=== PATIENT | male | born 1970 | race Caucasian/White ===

== ENCOUNTER 2020-04-26 15:07 | Observation (INO) | payer BC ==
[2020-04-26] MEDS ORDERED: DILTIAZEM HCL INJ 25 MG/5 ML VIAL IV ONE (16:03)
[2020-04-26] MEDS ORDERED: DILTIAZEM HCL/D5W 125 MG/125 ML RTUINJ IV PRN (16:04)
--- NOTE | 2020-04-26 16:12 | ER Document Report ---
ED Cardiac - General Chief Complaint: Palpitations Stated Complaint: FAST HEART RATE Time Seen by Provider: 04/26/20 15:42 - HPI Notes: Patient is a 49-year-old male with no significant past medical history who presents with palpitations. Patient states he woke up today around 4:30 AM to get ready for work. He felt his heart beating fast. He states he has felt this before about 1 year ago but it went away when he coughed. Patient went to work and told his boss that he was still having palpitations who referred him to the doctor. Patient saw [facility] today and had an EKG which showed atrial fibrillation and was sent to the ED. He denies any chest pain or shortness of breath. No fevers or recent illnesses. Patient has not been to the doctor in many years. He is a smoker. He does not take any medications. Patient states that he drinks Coke in the morning but otherwise denies any increase in caffeine use. No drug use. - Related Data Allergies/Adverse Reactions: No Known Allergies Allergy (Unverified 04/26/20 15:54) Past Medical History - General Information source: Patient - Social History Smoking Status: Current Every Day Smoker Family History: Reviewed & Not Pertinent Review of Systems - Review of Systems Notes: CONSTITUTIONAL: No fever, fatigue or weight loss. SKIN: No rash. HENT: No congestion, ear pain, or sore throat. EYES: No recent vision problems or eye pain. CARDIOVASCULAR: No chest pain or edema. Positive for palpitations. RESPIRATORY: No cough, shortness of breath, congestion, or wheezing. GASTROINTESTINAL: No abdominal pain, nausea, vomiting, bloody stools or diarrhea. GENITOURINARY: No dysuria. MUSCULOSKELETAL: No joint pain or swelling. LYMPHATIC: No swollen glands. NEUROLOGIC: No seizures. No headache, focal weakness or sensory changes. HEMATOLOGIC: No unusual bruising or bleeding. PSYCHIATRIC: No depression or anxiety. Physical Exam - Vital signs Vitals: Pulse Ox 98 04/26/20 15:35 - General General appearance: Appears well In distress: None Notes: VITAL SIGNS: Tachycardic. GENERAL: No acute distress, non-toxic appearance. HEAD: Normal with no signs of head trauma. EYES: Conjunctiva normal, no discharge. EARS: Hearing grossly intact. NOSE: Normal. NECK: Normal range of motion, no tenderness, supple, no lymphadenopathy, No adenopathy, no JVD. CHEST: Scant wheezing. CARDIAC: Irregularly irregular. VASCULAR: No Edema. Radial pulses equal. ABDOMEN: Normal and soft with no tenderness, no masses or pulsatile masses. MUSCULOSKELETAL: Good range of motion of all major joints. Extremities without clubbing, cyanosis or edema. NEUROLOGICAL: Alert and oriented x 3. No focal sensory or strength deficits. Speech normal. Follows commands appropriately. PSYCHIATRIC: Normal Affect, judgement and mood. SKIN: Normal appearance with no rashes or lesions. Course - Re-evaluation Re-evalutation: 04/26/20 16:11 Patient has A. fib with RVR. This is a new diagnosis. I will start him on a Cardizem bolus and drip. Patient's Chads Vasc score is 0, however, he has not seen a doctor in many years. I will discuss with hospitalist after lab work is resolved and patient has had Cardizem. Patient's heart rate has improved to the high 90s and low 100s on Cardizem. I discussed with the hospitalist for admission. Patient is agreeable to this. He continues to deny any complaints. 04/26/20 16:17 04/26/20 17:38 04/26/20 20:50 - Vital Signs Vital signs: Temp Pulse Resp BP Pulse Ox 106 H 11 L 142/102 H 98 04/26/20 19:27 04/26/20 18:30 04/26/20 18:30 04/26/20 18:30 - Laboratory Results Result Diagrams: 04/26/20 15:48 04/26/20 15:48 Laboratory Results Interpreted: 04/26/20 15:48 RBC 5.56 H Hgb 17.2 H Critical Laboratory Results Reviewed: No Critical Results - Radiology Results Critical Radiology Results Reviewed: No Critical Results - EKG Interpretation by Me Rate: Tachycardia Rhythm: A.Fib When compared to previous EKG there are: Previous EKG unavailable Additional EKG results interpreted by me: 04/26/20 16:12 Atrial fibrillation at a rate of 154. No acute ST changes. QTc 468. No previous EKG immediately available for comparison. 04/26/20 17:45 Repeat EKG shows atrial fibrillation at a rate of 101. QTc 415. No acute ST changes. Discharge - Discharge Clinical Impression: Atrial fibrillation with RVR Condition: Stable Disposition: ADMITTED INPATIENT Admitting Provider: Sroush (Hospitalist) Unit Admitted: Telemetry
[2020-04-26 16:29] LABS: ABSOLUTE BASOPHILS # (AUTO) 0.1 10^3/uL (0.0-0.2); ABSOLUTE EOSINOPHILS # (AUTO) 0.1 10^3/uL (0.0-0.6); ABSOLUTE LYMPHOCYTES (AUTO) 2.2 10^3/uL (0.5-4.7); ABSOLUTE MONOCYTES (AUTO) 0.7 10^3/uL (0.1-1.4); ABSOLUTE NEUT (AUTO) 5.2 10^3/uL (1.7-8.2); BASOPHILS % (AUTO) 1.2 % (0-2); EOSINOPHILS % (AUTO) 0.9 % (0-6); HEMOGLOBIN 17.2 g/dL (13.5-17.0); LYMPHOCYTES % (AUTO) 26.8 % (13-45); MEAN CORPUSCULAR HEMOGLOBIN 30.9 pg (27.0-33.4); MEAN CORPUSCULAR HGB CONC 35.8 g/dL (32.0-36.0); MEAN CORPUSCULAR VOLUME 86 fl (80-97); MONOCYTES % (AUTO) 8.7 % (3-13); PLATELET COUNT 362 10^3/uL (150-450); RED BLOOD COUNT 5.56 10^6/uL (4.35-5.55); RED CELL DISTRIBUTION WIDTH 13.2 % (11.5-14.0); SEGMENTED NEUTROPHILS % (AUTO) 62.4 % (42-78); TOTAL CELLS COUNTED % (AUTO) 100 %; WHITE BLOOD COUNT 8.3 10^3/uL (4.0-10.5)
--- NOTE | 2020-04-26 16:31 | RADIOLOGY REPORT (SQ) ---
EXAM DESCRIPTION: CHEST SINGLE VIEW IMAGES COMPLETED DATE/TIME: 04/26/2020 4:16 pm REASON FOR STUDY: rapid heart rate COMPARISON: None. EXAM PARAMETERS: NUMBER OF VIEWS: One view. TECHNIQUE: Single frontal radiographic view of the chest acquired. RADIATION DOSE: NA LIMITATIONS: None. FINDINGS: LUNGS AND PLEURA: The lung tate are hyperexpanded but clear. No effusion. No pneumotho rax. MEDIASTINUM AND HILAR STRUCTURES: No masses. Contour normal. HEART AND VASCULAR STRUCTURES: Heart normal in size. Normal vasculature. BONES: No acute findings. HARDWARE: None in the chest. OTHER: No other significant finding. IMPRESSION: Hyperexpansion otherwise negative chest. TECHNICAL DOCUMENTATION: JOB ID: [id number] 2010 [employer]- All Rights Reserved Reading location - IP/workstation name: [email or web address]
[2020-04-26 16:47] LABS: ALBUMIN 4.7 g/dL (3.5-5.0); ALKALINE PHOSPHATASE 69 U/L (38-126); ANION GAP 8 (5-19); ASPARTATE AMINO TRANSFERASE 36 U/L (17-59); BILIRUBIN,DIRECT 0.2 mg/dL (0.0-0.4); BILIRUBIN,TOTAL 0.8 mg/dL (0.2-1.3); BLOOD UREA NITROGEN 15 mg/dL (7-20); CALCIUM 9.8 mg/dL (8.4-10.2); CARBON DIOXIDE 27 mmol/L (22-30); CHLORIDE 105 mmol/L (98-107); CREATINE KINASE 85 U/L (55-170); GLUCOSE 89 mg/dL (75-110); TOTAL PROTEIN 8.2 g/dL (6.3-8.2)
[2020-04-26 17:04] LABS: FREE T4 (FREE THYROXINE) 1.15 ng/dL (0.78-2.19)
[2020-04-26 17:18] LABS: THYROID STIMULATING HORMONE 2.57 uIU/mL (0.47-4.68)
[2020-04-26] MEDS ORDERED: ASPIRIN 325 MG TABLET PO ONE (17:40)
--- NOTE | 2020-04-26 17:57 | EKG REPORT ---
SEVERITY:- ABNORMAL ECG - ATRIAL FIBRILLATION, V-RATE 68-132 NONSPECIFIC T ABNORMALITIES, DIFFUSE LEADS : Confirmed by: Ash Rodríguez MD 26-Apr-2020 17:56:28
--- NOTE | 2020-04-26 17:58 | EKG REPORT ---
SEVERITY:- ABNORMAL ECG - ATRIAL FIBRILLATION, WITH RAPID V-RATE 108-[address]-T CHANGES DIFFUSE : Confirmed by: Ash Rodríguez MD 26-Apr-2020 17:58:03
[2020-04-26] MEDS ORDERED: NORMAL SALINE 1000 ML 1,000 ML IV PRN (18:35)
[2020-04-26] MEDS ORDERED: PROMETHAZINE HCL INJ 25 MG/1 ML VIAL IV PRN (18:35)
[2020-04-26] MEDS ORDERED: ONDANSETRON 4 MG TAB.RAPDIS PO PRN (18:35)
[2020-04-26] MEDS ORDERED: ONDANSETRON HCL INJ/PF 4 MG/2 ML SDV IV PRN (18:35)
[2020-04-26] MEDS ORDERED: IPRATROPIUM/ALBUTEROL 0.5-2.5 MG/3 ML AMPUL NEB PRN (18:35)
[2020-04-26] MEDS ORDERED: TEMAZEPAM 7.5 MG CAPSULE PO PRN (18:35)
[2020-04-26] MEDS ORDERED: ACETAMINOPHEN 325 MG TABLET PO PRN (18:35)
[2020-04-26] MEDS ORDERED: OXYCODONE-ACETAMINOPHEN 5-325 MG TABLET PO PRN (18:35)
[2020-04-26] MEDS ORDERED: METOPROLOL TARTRATE PF/INJ 5 MG/5 ML SDV IV PRN (18:38)
[2020-04-26] MEDS ORDERED: NICOTINE 14 MG/24 HR PATCH.TD24 TD PRN (18:41)
[2020-04-26] MEDS ORDERED: METOPROLOL TARTRATE 25 MG TABLET PO SCH ×2 (18:45→20:30)
--- NOTE | 2020-04-26 18:45 | PDOC H&P ---
History of Present Illness Admission Date/PCP: 04/26/20 18:04 JUAN TIM MD History of Present Illness: SCOOTER CASAS is a 49 year old male with no significant past medical history except tobacco abuse presenting to ED complaining of palpitations. Patient is stating that he has felt palpitations before about 2 times but did not last as much, this morning when he woke up got his newspaper and coffee he suddenly felt heart beating fast and he told his coworker who urged him to come to ED. Patient is stating that when his heart was beating fast he did not have any chest pain or any lightheadedness. Patient denies any personal or family history of CAD, denies any weight changes, any orthopnea, paroxysmal nocturnal dyspnea, chest pain, nausea, vomiting, diarrhea, constipation or any urinary symptoms. In ED he was noted to be in A. fib RVR with normal troponins and TSH, patient was started on Cardizem drip and hospitalist was consulted for admission. Social History Smoking Status: Current Every Day Smoker Family History Family History: None, Reviewed & Not Pertinent Parental Family History Reviewed: Yes Children Family History Reviewed: Yes Sibling(s) Family History Reviewed.: Yes Medication/Allergy Home Medications: No Home Medications 04/26/20 Allergies/Adverse Reactions: No Known Allergies Allergy (Unverified 04/26/20 15:54) Review of Systems Review of Systems: as per hpi Physical Exam General appearance: PRESENT: no acute distress, well-developed, well-nourished Head exam: PRESENT: atraumatic, normocephalic Respiratory exam: PRESENT: clear to auscultation sarika. ABSENT: rales, rhonchi, wheezes Cardiovascular exam: PRESENT: irregular rhythm, RRR. ABSENT: diastolic murmur, rubs, systolic murmur GI/Abdominal exam: PRESENT: normal bowel sounds, soft. ABSENT: distended, guarding, mass, organolmegaly, rebound, tenderness Neurological exam: PRESENT: alert, awake, oriented to person, oriented to place, oriented to time, oriented to situation, CN II-XII grossly intact. ABSENT: motor sensory deficit Results Laboratory Results: 04/26/20 15:48 04/26/20 15:48 04/26/20 04/26/20 04/26/20 15:48 15:48 15:48 WBC 8.3 RBC 5.56 H Hgb 17.2 H Hct 48.0 MCV 86 MCH 30.9 MCHC 35.8 RDW 13.2 Plt Count 362 Seg Neutrophils % 62.4 Sodium 140.3 Potassium 4.0 Chloride 105 Carbon Dioxide 27 Anion Gap 8 BUN 15 Creatinine 0.91 Est GFR ( Amer) > 60 Glucose 89 Calcium 9.8 Total Bilirubin 0.8 AST 36 Alkaline Phosphatase 69 Total Protein 8.2 Albumin 4.7 TSH 2.57 Free T4 1.15 04/26/20 04/26/20 15:48 15:48 Creatine Kinase 85 Troponin I < 0.012 Impressions: Chest X-Ray 04/26/20 16:03 IMPRESSION: Hyperexpansion otherwise negative chest. Assessment and Plan - Diagnosis (1) Atrial fibrillation with RVR Is this a current diagnosis for this admission?: Yes Plan: New onset atrial fibrillation, chadsvasc score of 0. No anticoagulation indicated. Admit to ICU, transition Cardizem drip to p.o. beta-blockers. Cardiology consulted. We will also obtain lipid panel and check hemoglobin A1c. (2) Tobacco abuse Is this a current diagnosis for this admission?: Yes Plan: Counseled on quitting. NicoDerm patch as needed. - Time Time Spent with patient: 35 or more minutes Anticipated Discharge Disposition: Home, Self Care Anticipated Discharge Timeframe: within 24 hours
[2020-04-26] MEDS: HEPARIN SOD (PORCINE) 5,000 UNIT/ML 1 ML VIAL SUBCUT SCH (21:08)
[2020-04-26] MEDS: FAMOTIDINE 20 MG TABLET PO SCH (21:09)
[2020-04-27] MEDS: HEPARIN SOD (PORCINE) 5,000 UNIT/ML 1 ML VIAL SUBCUT SCH (05:08)
[2020-04-27 06:31] LABS: HEMATOCRIT 48.6 % (37.9-51.0); HEMOGLOBIN 16.7 g/dL (13.5-17.0); MEAN CORPUSCULAR HEMOGLOBIN 29.9 pg (27.0-33.4); MEAN CORPUSCULAR HGB CONC 34.4 g/dL (32.0-36.0); MEAN CORPUSCULAR VOLUME 87 fl (80-97); RED CELL DISTRIBUTION WIDTH 13.3 % (11.5-14.0)
[2020-04-27 06:55] LABS: CHOLESTEROL 176.56 mg/dL (0-200); TRIGLYCERIDES 109 mg/dL (<150)
[2020-04-27 07:05] LABS: DIRECT LDL 87 mg/dL (<100)
[2020-04-27 07:18] LABS: PLATELET COUNT 319 10^3/uL (150-450)
[2020-04-27] MEDS ORDERED: METOPROLOL TARTRATE 50 MG TABLET PO SCH ×2 (08:30→14:00)
[2020-04-27] MEDS: FAMOTIDINE 20 MG TABLET PO SCH ×2 (09:01→21:11)
[2020-04-27] MEDS: ASPIRIN 81 MG TABLET, CHEWABLE PO SCH (09:01)
--- NOTE | 2020-04-27 09:43 | PDOC CONSULTATION ---
Consultation Consult Date: 04/27/20 Attending physician:: SELENA NUÑEZ Provider Consulted: BALTAZAR BUTTERFIELD Consult reason:: New onset A-fib History of Present Illness Admission Date/PCP: 04/26/20 18:04 JUAN TIM MD History of Present Illness: SCOOTER CASAS is a 49 year old male with no known history of medical issues, tobacco smoker of 1 pack/day since age 25 years who is consulted to our service for new onset atrial fibrillation. The patient has had very brief episodes of palpitations in the past with spontaneous resolution and not associated with any cardiovascular symptoms however yesterday he felt palpitations again that did not resolve as usual. He was instructed by his employer to be evaluated by his PCM who directed the patient to the emergency room where he was found to be in rapid atrial fibrillation. He was initially started on a diltiazem drip which was eventually discontinued and was started on Lopressor 25 mg twice daily. This morning he feels at his baseline and his main issue is that he is very anxious about staying in the hospital because of Covid concerns and also he wants to smoke. He specifically denies chest pain, shortness of breath, CHATMAN, PND, lower extremity edema, palpitations, syncope and presyncope. His telemetry shows rapid atrial fibrillation with heart rates as high as 140 bpm. Physical exam on 04/27/2020: GENERAL: Looks older than stated age. Pleasant and conversational. Oriented x3 with normal mood. Not in acute distress. Disheveled. HEENT: Normocephalic, atraumatic. Pupils equal. Sclerae anicteric. Oropharynx moist. NECK: No JVD. No carotid bruits. LUNGS: Deep inspiratory mild wheezing and rhonchi at the bases. Normal respiratory effort without the use of accessory muscles or intercostal retractions. CARDIOVASCULAR: Tachycardic, irregularly irregular rhythm without murmurs, rubs, or gallops. PMI not displaced. ABDOMEN: No masses or tenderness to palpation. No bruit. No splenomegaly or hepatomegaly. No abdominal aorta bruit noted. EXTREMITIES: No edema, no cyanosis, no clubbing. +2 pulses femoral and pedal pulses bilaterally. SKIN: No lesions or rashes. MUSCULOSKELETAL: No chest tenderness to palpation. NEUROLOGIC: Nonfocal. No gross sensory or motor deficits bilateral upper or lower extremities. Past Medical History Psychiatric Medical History: Denies: Depression Social History Smoking Status: Current Every Day Smoker Cigarettes Packs Per Day: 30 Electronic Cigarette use?: No Frequency of Alcohol Use: Heavy Hx Recreational Drug Use: No Drugs: None Hx Prescription Drug Abuse: No Family History Family History: Reviewed & Not Pertinent Parental Family History Reviewed: Yes Children Family History Reviewed: Yes Sibling(s) Family History Reviewed.: Yes Medication/Allergy Home Medications: No Home Medications 04/26/20 Allergies/Adverse Reactions: No Known Allergies Allergy (Unverified 04/26/20 15:54) Physical Exam Vital Signs: Temp Pulse Resp BP Pulse Ox 98.4 F 69 18 129/71 H 99 04/27/20 03:38 04/27/20 03:38 04/27/20 03:38 04/27/20 03:38 04/27/20 03:38 Intake & Output 04/26/20 04/27/20 04/28/20 06:59 06:59 06:59 Intake Total 407 Balance 407 Weight 80.2 kg Results Laboratory Results: 04/26/20 15:48 04/26/20 04/26/20 04/26/20 15:48 15:48 15:48 WBC 8.3 RBC 5.56 H Hgb 17.2 H Hct 48.0 MCV 86 MCH 30.9 MCHC 35.8 RDW 13.2 Plt Count 362 Seg Neutrophils % 62.4 Sodium 140.3 Potassium 4.0 Chloride 105 Carbon Dioxide 27 Anion Gap 8 BUN 15 Creatinine 0.91 Est GFR ( Amer) > 60 Glucose 89 Calcium 9.8 Total Bilirubin 0.8 AST 36 Alkaline Phosphatase 69 Total Protein 8.2 Albumin 4.7 Triglycerides Cholesterol LDL Cholesterol Direct VLDL Cholesterol HDL Cholesterol TSH 2.57 Free T4 1.15 04/27/20 05:59 WBC RBC Hgb Hct MCV MCH MCHC RDW Plt Count Seg Neutrophils % Sodium Potassium Chloride Carbon Dioxide Anion Gap BUN Creatinine Est GFR ( Amer) Glucose Calcium Total Bilirubin AST Alkaline Phosphatase Total Protein Albumin Triglycerides 109 Cholesterol 176.56 LDL Cholesterol Direct 87 VLDL Cholesterol 22.0 HDL Cholesterol 68 TSH Free T4 04/26/20 04/26/20 15:48 15:48 Creatine Kinase 85 Troponin I < 0.012 Impressions: Chest X-Ray 04/26/20 16:03 IMPRESSION: Hyperexpansion otherwise negative chest. Assessment & Plan - Diagnosis (1) Atrial fibrillation with RVR Plan: This is the patient's first documented episode of atrial fibrillation although he has had palpitations in the past which were brief and which resolved spontaneously. Whether or not this is his true first episode atrial fibrillation or not is unknown. I had a long discussion with him and his regarding rhythm control versus rate control strategy and the patient is leaning towards rate control for now with a switch to rhythm control as an outpatient as, again, he is very anxious to leave the hospital. At this point he is not ready to go home from the cardiovascular standpoint as he continues to be tachycardic. We will increase his beta-jeffry to 50 mg p.o. every 6 hours to achieve better heart rate control and we will obtain an echocardiogram to assess for structural heart disease. We will also start him on Eliquis 5 mg p.o. twice daily in preparation for cardioversion in the near future. His [id number] score is 0 therefore he does not require long-term anticoagulation. The plan was discussed with the hospitalist, Dr. Park. Recommendations: -Increase Lopressor to 50 mg p.o. every 6 hours. -Start Eliquis 5 mg p.o. twice daily. -Continue with telemetry. -Echocardiogram today. -We will continue to follow the patient with you. (2) Tobacco abuse Plan: The patient was counseled about the importance of quitting tobacco, he verbalized understanding. Further management per hospitalist team.
--- NOTE | 2020-04-27 10:49 | PDOC PROGRESS REPORT ---
Subjective Date:: 04/27/20 Subjective:: SCOOTER CASAS is a 49 year old male with no significant past medical history except tobacco abuse presenting to ED complaining of palpitations. Patient is stating that he has felt palpitations before about 2 times but did not last as much, this morning when he woke up got his newspaper and coffee he suddenly felt heart beating fast and he told his coworker who urged him to come to ED. Patient is stating that when his heart was beating fast he did not have any chest pain or any lightheadedness. Patient denies any personal or family history of CAD, denies any weight changes, any orthopnea, paroxysmal nocturnal dyspnea, chest pain, nausea, vomiting, diarrhea, constipation or any urinary symptoms. In ED he was noted to be in A. fib RVR with normal troponins and TSH, patient was started on Cardizem drip and hospitalist was consulted for admission. 04/27/2020. No acute events overnight, unfortunately patient is still not rate controlled, anxious to leave the hospital however has agreed to stay until his heart rate is controlled, denies any lightheadedness, chest pain, nausea, vomiting, diarrhea, constipation or any urinary symptoms. , Reason For Visit: NEW ONSET AFIB Physical Exam Vital Signs: Temp Pulse Resp BP Pulse Ox 98.4 F 148 H 18 132/76 H 99 04/27/20 08:12 04/27/20 08:00 04/27/20 08:00 04/27/20 08:00 04/27/20 08:00 Intake & Output 04/26/20 04/27/20 04/28/20 06:59 06:59 06:59 Intake Total 407 Balance 407 Weight 80.2 kg General appearance: PRESENT: no acute distress, well-developed, well-nourished Head exam: PRESENT: atraumatic, normocephalic Respiratory exam: PRESENT: clear to auscultation sarika. ABSENT: rales, rhonchi, wheezes Cardiovascular exam: PRESENT: RRR, tachycardia. ABSENT: diastolic murmur, rubs, systolic murmur GI/Abdominal exam: PRESENT: normal bowel sounds, soft. ABSENT: distended, guarding, mass, organolmegaly, rebound, tenderness Extremities exam: PRESENT: full ROM. ABSENT: calf tenderness, clubbing, pedal edema Neurological exam: PRESENT: alert, awake, oriented to person, oriented to place, oriented to time, oriented to situation, CN II-XII grossly intact. ABSENT: motor sensory deficit Results Laboratory Results: 04/27/20 05:59 04/26/20 15:48 04/26/20 04/26/20 04/26/20 15:48 15:48 15:48 WBC 8.3 RBC 5.56 H Hgb 17.2 H Hct 48.0 MCV 86 MCH 30.9 MCHC 35.8 RDW 13.2 Plt Count 362 Seg Neutrophils % 62.4 Sodium 140.3 Potassium 4.0 Chloride 105 Carbon Dioxide 27 Anion Gap 8 BUN 15 Creatinine 0.91 Est GFR ( Amer) > 60 Glucose 89 Calcium 9.8 Total Bilirubin 0.8 AST 36 Alkaline Phosphatase 69 Total Protein 8.2 Albumin 4.7 Triglycerides Cholesterol LDL Cholesterol Direct VLDL Cholesterol HDL Cholesterol TSH 2.57 Free T4 1.15 04/27/20 04/27/20 05:59 05:59 WBC 8.0 RBC 5.60 H Hgb 16.7 Hct 48.6 MCV 87 MCH 29.9 MCHC 34.4 RDW 13.3 Plt Count 319 Seg Neutrophils % Sodium Potassium Chloride Carbon Dioxide Anion Gap BUN Creatinine Est GFR ( Amer) Glucose Calcium Total Bilirubin AST Alkaline Phosphatase Total Protein Albumin Triglycerides 109 Cholesterol 176.56 LDL Cholesterol Direct 87 VLDL Cholesterol 22.0 HDL Cholesterol 68 TSH Free T4 04/26/20 04/26/20 15:48 15:48 Creatine Kinase 85 Troponin I < 0.012 Impressions: Chest X-Ray 04/26/20 16:03 IMPRESSION: Hyperexpansion otherwise negative chest. Assessment and Plan - Diagnosis (1) Atrial fibrillation with RVR Is this a current diagnosis for this admission?: Yes Plan: Not rate control. Currently off of Cardizem drip. New onset atrial fibrillation, chadsvasc score of 0. No anticoagulation indicated. Hemoglobin A1c 5.0%. Lipid panel within acceptable range. Continue p.o. beta-blockers, uptitrate to achieve a heart rate of less than 100. We will start on Eliquis 5 mg p.o. twice daily in preparation for outpatient cardioversion. Cardiology on board. Recommendations noted. (2) Tobacco abuse Is this a current diagnosis for this admission?: Yes Plan: Counseled on quitting. NicoDerm patch as needed. - Time Time Spent with patient: 35 or more minutes Anticipated Discharge Disposition: Home, Self Care Anticipated Discharge Timeframe: within 48 hours
[2020-04-27] MEDS: VARENICLINE TARTRATE 0.5 MG TABLET PO SCH (12:28)
--- NOTE | 2020-04-27 16:19 | XCELERA REPORT ---
[address] [address] Transthoracic Echocardiogram Report Name: SCOOTER CASAS Age: 49 yrs Gender: Male : 1970 Patient Status: Inpatient Patient Location: [address] [place] [address] Study Date: 04/27/2020 08:35 AM Height: 74 in Weight: 173 lb BSA: 2.0 m2 Procedure: A complete two-dimensional transthoracic echocardiogram was performed (2D, M-mode, spectral and color flow Doppler). Study Quality: Fair. Reason For Study: Atrial fibrillation Ordering Physician: BALTAZAR BUTTERFIELD Performed By: Maite Woody Interpretation Summary Technically difficult study. The patient was in rapid atrial fibrillation during the study. There is mild concentric left ventricular hypertrophy. LV systolic function is difficult to assess as the patient is in rapid atrial fibrillation however it appears to be preserved. LV diastolic function could not be adequately assessed due to atrial fibrilation. Regional wall motion abnormalities cannot be excluded due to limited visualization. LV diastolic function could not be adequately assessed due to atrial fibrilation. Mild MR, mild TR. No prior studies for comparison. MMode/2D Measurements & Calculations RVDd: 3.0 cm LVIDd: 4.1 cm FS: 29.1 % Ao root diam: 2.9 cm IVSd: 1.3 cm LVIDs: 2.9 cm EDV(Teich): Ao root area: 73.2 ml LVPWd: 1.0 cm 6.5 cm2 ESV(Teich): 31.9 ml EF(Teich): 56.4 % EDV(MOD-sp4): SV(MOD-sp4): 67.7 ml 35.5 ml ESV(MOD-sp4): 32.2 ml EF(MOD-sp4): 52.4 % Doppler Measurements & Calculations MV E max niko: MV dec slope: Ao V2 max: LV V1 max P.4 cm/sec 78.2 cm/sec 3.2 mmHg MV A max niko: 714.3 cm/sec2 Ao max PG: LV V1 max: 45.9 cm/sec MV dec time: 0.10 sec 2.4 mmHg 89.0 cm/sec MV E/A: 1.6 PA V2 max: TR max niko: 68.0 cm/sec 206.1 cm/sec PA max P.9 mmHg TR max P.0 mmHg Left Ventricle There is mild concentric left ventricular hypertrophy. LV systolic function is difficult to assess as the patient is in rapid atrial fibrillation however it appears to be preserved. LV diastolic function could not be adequately assessed due to atrial fibrilation. Regional wall motion abnormalities cannot be excluded due to limited visualization. Right Ventricle The right ventricle is normal in size, thickness and function. The right ventricular systolic function is normal. Atria The right atrium is normal. The left atrial size is normal. Interarterial septum not well visualized and not well dopplered. Cannot comment on ASD/PFO presence. Mitral Valve The mitral valve is normal in structure and function. There is no evidence of mitral valve prolapse. There is no mitral valve stenosis. There is a mild amount of mitral regurgitation. Aortic Valve The aortic valve is normal in structure and functions normally. There is no aortic valvular vegetation. There is no aortic valve stenosis. No aortic regurgitation is present. Tricuspid Valve The tricuspid is normal in structure and function. There is no tricuspid valve prolapse. There is no tricuspid stenosis. There is a mild amount of tricuspid regurgitation. Pulmonic Valve The pulmonic valve is normal in structure and function. There is no vegetation on the pulmonic valve. There is no pulmonic valvular stenosis. There is no pulmonic valvular regurgitation. Great Vessels The aortic root is normal size. Effusions There is no pericardial effusion. There is no pleural effusion. : BALTAZAR BUTTERFIELD, Baltazar
[2020-04-27] MEDS: APIXABAN 5 MG TABLET PO SCH (17:07)
--- NOTE | 2020-04-27 17:44 | EKG REPORT ---
SEVERITY:- NORMAL ECG - SINUS RHYTHM : Confirmed by: Ash Rodríguez MD 27-Apr-2020 17:43:55
[2020-04-27] MEDS ORDERED: METOPROLOL TARTRATE 25 MG TABLET PO SCH (22:00)
--- NOTE | 2020-04-28 09:08 | PDOC PROGRESS REPORT ---
Subjective Date:: 04/28/20 Subjective:: SCOOTER CASAS is a 49 year old male with no known history of medical issues, to bacco smoker of 1 pack/day since age 25 years who is consulted to our service for new onset atrial fibrillation. The patient has had very brief episodes of palpitations in the past with spontaneous resolution and not associated with any cardiovascular symptoms however yesterday he felt palpitations again that did not resolve as usual. He was instructed by his employer to be evaluated by his PCM who directed the patient to the emergency room where he was found to be in rapid atrial fibrillation. He was initially started on a diltiazem drip which was eventually discontinued and was started on Lopressor 25 mg twice daily. This morning he feels at his baseline and his main issue is that he is very anxious about staying in the hospital because of Covid concerns and also he wants to smoke. He specifically denies chest pain, shortness of breath, CHATMAN, PND, lower extremity edema, palpitations, syncope and presyncope. His telemetry shows rapid atrial fibrillation with heart rates as high as 140 bpm. 04/28/2020: The patient had uneventful night and feels 100% better. He did convert spon taneously to normal sinus rhythm at around 0940 yesterday morning. He denies recurrence of index symptoms. Physical exam on 04/28/2020: GENERAL: Looks older than stated age. Pleasant and conversational. Oriented x3 with normal mood. Not in acute distress. Disheveled. HEENT: Normocephalic, atraumatic. Pupils equal. Sclerae anicteric. Oropharynx moist. NECK: No JVD. No carotid bruits. LUNGS: Deep inspiratory mild wheezing and rhonchi at the bases. Normal respiratory effort without the use of accessory muscles or intercostal retractions. CARDIOVASCULAR: Regularly regular rate and rhythm without murmurs, rubs, or gallops. PMI not displaced. ABDOMEN: No masses or tenderness to palpation. No bruit. No splenomegaly or hepatomegaly. No abdominal aorta bruit noted. EXTREMITIES: No edema, no cyanosis, no clubbing. +2 pulses femoral and pedal pulses bilaterally. SKIN: No lesions or rashes. MUSCULOSKELETAL: No chest tenderness to palpation. NEUROLOGIC: Nonfocal. No gross sensory or motor deficits bilateral upper or lower extremities. Reason For Visit: NEW ONSET AFIB Physical Exam Vital Signs: Temp Pulse Resp BP Pulse Ox 97.8 F 70 20 134/77 H 100 04/28/20 08:28 04/28/20 07:00 04/28/20 03:38 04/28/20 03:38 04/28/20 03:38 Intake & Output 04/27/20 04/28/20 04/29/20 06:59 06:59 06:59 Intake Total 407 1999 Balance 407 1999 Weight 80.2 kg 79.5 kg Results Laboratory Results: 04/27/20 05:59 04/26/20 15:48 04/26/20 04/26/20 15:48 15:48 Creatine Kinase 85 Troponin I < 0.012 Impressions: Chest X-Ray 04/26/20 16:03 IMPRESSION: Hyperexpansion otherwise negative chest. 04/27/20 05:59 04/26/20 15:48 MCV 87 fl (80-97) 04/27/20 05:59 MCH 29.9 pg (27.0-33.4) 04/27/20 05:59 MCHC 34.4 g/dL (32.0-36.0) 04/27/20 05:59 RDW 13.3 % (11.5-14.0) 04/27/20 05:59 Seg Neutrophils % 62.4 % (42-78) 04/26/20 15:48 Chloride 105 mmol/L (98-107) 04/26/20 15:48 Carbon Dioxide 27 mmol/L (22-30) 04/26/20 15:48 Anion Gap 8 (5-19) 04/26/20 15:48 Est GFR ( Amer) > 60 (>60) 04/26/20 15:48 Glucose 89 mg/dL (75-110) 04/26/20 15:48 Calcium 9.8 mg/dL (8.4-10.2) 04/26/20 15:48 Total Bilirubin 0.8 mg/dL (0.2-1.3) 04/26/20 15:48 AST 36 U/L (17-59) 04/26/20 15:48 Alkaline Phosphatase 69 U/L (38-126) 04/26/20 15:48 Total Protein 8.2 g/dL (6.3-8.2) 04/26/20 15:48 Albumin 4.7 g/dL (3.5-5.0) 04/26/20 15:48 Triglycerides 109 mg/dL (<150) 04/27/20 05:59 Cholesterol 176.56 mg/dL (0-200) 04/27/20 05:59 LDL Cholesterol Direct 87 mg/dL (<100) 04/27/20 05:59 VLDL Cholesterol 22.0 mg/dL (10-31) 04/27/20 05:59 HDL Cholesterol 68 mg/dL (>40) 04/27/20 05:59 TSH 2.57 uIU/mL (0.47-4.68) 04/26/20 15:48 Free T4 1.15 ng/dL (0.78-2.19) 04/26/20 15:48 04/26/20 04/26/20 15:48 15:48 Creatine Kinase 85 Troponin I < 0.012 Current Medication List Generic Name Dose Route Start Last Admin Trade Name Freq PRN Reason Stop Dose Admin Acetaminophen 325 mg 04/26/20 18:35 Acetaminophen 325 Mg Tablet PO 05/26/20 18:34 Q4HP PRN FEVER >101 Albuterol/Ipratropium 3 ml 04/26/20 18:35 Ipratropium/Albuterol 0.5-2.5 Mg/3 Ml Ampul NEB 05/26/20 18:34 RTQ6HP PRN SHORTNESS OF BREATH Apixaban 5 mg 04/27/20 18:00 04/27/20 17:07 Apixaban 5 Mg Tablet PO 05/27/20 17:59 5 mg BID ERUM Administration Aspirin 81 mg 04/27/20 10:00 04/27/20 09:01 Aspirin 81 Mg Tablet, Chewable PO 05/27/20 09:59 81 mg DAILY ERUM Administration Famotidine 20 mg 04/26/20 22:00 04/27/20 21:11 Famotidine 20 Mg Tablet PO 05/26/20 21:59 Not Given Q12 ERUM Metoprolol Tartrate 2.5 mg 04/26/20 18:38 04/27/20 04:32 Metoprolol Tartrate Pf/Inj 5 Mg/5 Ml Sdv IV 05/26/20 18:37 2.5 mg Q6HP PRN Administration Give For Hr > [130] Metoprolol Tartrate 25 mg 04/28/20 10:00 Metoprolol Tartrate 25 Mg Tablet PO 05/28/20 09:59 Q12 ERUM Nicotine 1 each 04/26/20 18:41 04/27/20 09:01 Nicotine 14 Mg/24 Hr Patch.Td24 TD 05/26/20 18:40 1 each DAILYP PRN Administration WITHDRAWAL SYMPTOMS Ondansetron HCl 4 mg 04/26/20 18:35 Ondansetron 4 Mg Tab.Rapdis PO 05/26/20 18:34 Q4HP PRN FOR NAUSEA/VOMITING Ondansetron HCl 4 mg 04/26/20 18:35 Ondansetron Hcl Inj/Pf 4 Mg/2 Ml Sdv IV 05/26/20 18:34 Q4HP PRN FOR NAUSEA/VOMITING Oxycodone/Acetaminophen 1 tab 04/26/20 18:35 Oxycodone-Acetaminophen 5-325 Mg Tablet PO 05/03/20 18:34 Q4HP PRN FOR PAIN SCALE 4-5 Promethazine HCl 6.25 mg 04/26/20 18:35 Promethazine Hcl Inj 25 Mg/1 Ml Vial IV 05/26/20 18:34 Q4HP PRN FOR NAUSEA/VOMITING Temazepam 7.5 mg 04/26/20 18:35 Temazepam 7.5 Mg Capsule PO 05/03/20 18:34 HSP PRN SLEEP OR INSOMNIA Varenicline 0.5 mg 04/27/20 12:00 04/27/20 12:28 Varenicline Tartrate 0.5 Mg Tablet PO 05/27/20 11:59 Not Given DAILY ERUM Discontinued Medications Generic Name Dose Route Start Last Admin Trade Name Freq PRN Reason Stop Dose Admin Aspirin 325 mg 04/26/20 17:40 04/26/20 17:56 Aspirin 325 Mg Tablet PO 04/26/20 17:41 325 mg NOW ONE Administration Diltiazem HCl 10 mg 04/26/20 16:03 04/26/20 16:24 Diltiazem Hcl Inj 25 Mg/5 Ml Vial IV 04/26/20 16:04 10 mg NOW ONE Administration Heparin Sodium (Porcine) 5,000 unit 04/26/20 22:00 04/27/20 05:08 Heparin Sod (Porcine) 5,000 Unit/Ml 1 Ml Vial SUBCUT 05/26/20 21:59 Not Given Q8 ERUM Diltiazem HCl 125 mg in 125 mls @ 0 mls/hr 04/26/20 16:04 04/26/20 22:12 Cardizem Rtu Inj 125 Mg-D5w 125 Ml Premix IV 05/26/20 16:03 0 mls/hr CONTINUOUS PRN 0 mls/hr THIS MED IS NOT "PRN" Titration Protocol Titrate Sodium Chloride 1,000 mls @ 80 mls/hr 04/26/20 18:35 04/27/20 16:17 Nacl 0.9% 1000 Ml Iv Soln IV 05/26/20 18:34 Infused CONTINUOUS PRN Infusion THIS MED IS NOT "PRN" Metoprolol Tartrate 25 mg 04/26/20 18:45 Metoprolol Tartrate 25 Mg Tablet PO 05/26/20 18:44 Q12 ERUM Metoprolol Tartrate 25 mg 04/26/20 20:30 04/26/20 21:12 Metoprolol Tartrate 25 Mg Tablet PO 05/26/20 20:29 25 mg Q12 ERUM Administration Metoprolol Tartrate 50 mg 04/27/20 08:30 04/27/20 09:01 Metoprolol Tartrate 50 Mg Tablet PO 05/27/20 08:29 50 mg Q6 ERUM Administration Metoprolol Tartrate 50 mg 04/27/20 14:00 04/27/20 14:00 Metoprolol Tartrate 50 Mg Tablet PO 05/27/20 13:59 Not Given Q8 ERUM Metoprolol Tartrate 25 mg 04/27/20 22:00 04/27/20 21:11 Metoprolol Tartrate 25 Mg Tablet PO 05/27/20 21:59 25 mg Q12 ERUM Administration Metoprolol Tartrate 50 mg 04/28/20 10:00 Metoprolol Tartrate 25 Mg Tablet PO 05/28/20 09:59 Q12 [facility] Assessment & Plan - Diagnosis (1) Atrial fibrillation with RVR Is this a current diagnosis for this admission?: Yes Plan: The patient converted spontaneously to normal sinus rhythm yesterday morning. His [id number] score is 0 therefore no long-term anticoagulation needed. Recommendations: -The patient may be discharged from the cardiovascular standpoint. -Change metoprolol tartrate to metoprolol succinate 25 mg daily. -The patient will follow up in our office in [place] on 05/06/2020. The office will contact him with time of appointment. -Discontinue Eliquis. (2) Tobacco abuse Is this a current diagnosis for this admission?: Yes Plan: The patient was counseled about the importance of quitting tobacco permanently and on how to avoid relapse. He was prescribed Chantix however he states that the NicoDerm patch is working better therefore we will continue with it for now. Further management per hospitalist team.
[2020-04-28 09:43] VITALS: BP 134/77
[2020-04-28] MEDS: VARENICLINE TARTRATE 0.5 MG TABLET PO SCH (09:43)
[2020-04-28] MEDS: FAMOTIDINE 20 MG TABLET PO SCH (09:43)
[2020-04-28] MEDS: ASPIRIN 81 MG TABLET, CHEWABLE PO SCH (09:46)
[2020-04-28] MEDS: APIXABAN 5 MG TABLET PO SCH (09:46)
[2020-04-28] MEDS ORDERED: METOPROLOL TARTRATE 25 MG TABLET PO SCH ×2 (10:00)
--- NOTE | 2020-04-28 13:45 | PDOC DISCHARGE SUMMARY ---
Impression - Admit/DC Date/PCP Admission Date/Primary Care Provider: 04/26/20 18:04 JUAN TIM MD Discharge Date: 04/28/20 - Discharge Diagnosis (1) Atrial fibrillation with RVR Is this a current diagnosis for this admission?: Yes (2) Tobacco abuse Is this a current diagnosis for this admission?: Yes - Additional Information Discharge Diet: As Tolerated Discharge Activity: Activity As Tolerated Referrals: [facility], [place] [Other] - 05/17/20 12:30 pm JOVITA ANGEL FNP-C [NO LOCAL MD] - 05/03/20 9:00 am Prescriptions: Metoprolol Succinate [Toprol Xl 25 mg Tab.sr] 25 mg PO DAILY 30 Days #30 tab.sr.24h Home Medications: Metoprolol Succinate [Toprol Xl 25 mg Tab.sr] 25 mg PO DAILY 30 Days #30 tab.sr.24h 04/28/20 History of Present Illiness History of Present Illness: SCOOTER CASAS is a 49 year old male with no significant past medical history except tobacco abuse presenting to ED complaining of palpitations. Patient is stating that he has felt palpitations before about 2 times but did not last as much, this morning when he woke up got his newspaper and coffee he suddenly felt heart beating fast and he told his coworker who urged him to come to ED. Patient is stating that when his heart was beating fast he did not have any chest pain or any lightheadedness. Patient denies any personal or family history of CAD, denies any weight changes, any orthopnea, paroxysmal nocturnal dyspnea, chest pain, nausea, vomiting, diarrhea, constipation or any urinary symptoms. In ED he was noted to be in A. fib RVR with normal troponins and TSH, patient was started on Cardizem drip and hospitalist was consulted for admission. Hospital Course Hospital Course: (1) Atrial fibrillation with RVR Paroxysmal atrial fibrillation. Converted spontaneously back to sinus rhythm. Initially was a started on currently off of Cardizem drip transition to p.o. beta-blockers. New onset atrial fibrillation, chadsvasc score of 0. No anticoagulation indicated. Hemoglobin A1c 5.0%. Lipid panel within acceptable range. Discharged on Toprol-XL 25 mg p.o. daily. Advised to follow-up with Dr. Becker as outpatient. Cardiology consulted. Please refer to note. (2) Tobacco abuse Counseled on quitting. NicoDerm patch as needed. Physical Exam Vital Signs: Temp Pulse Resp BP Pulse Ox 97.8 F 72 15 134/77 H 99 04/28/20 09:42 04/28/20 09:42 04/28/20 09:42 04/28/20 09:42 04/28/20 09:42 Intake & Output 04/27/20 04/28/20 04/29/20 06:59 06:59 06:59 Intake Total 407 2000 Balance 407 1999 Weight 80.2 kg 79.5 kg General appearance: PRESENT: no acute distress, well-developed, well-nourished Head exam: PRESENT: atraumatic, normocephalic Respiratory exam: PRESENT: clear to auscultation sarika. ABSENT: rales, rhonchi, wheezes GI/Abdominal exam: PRESENT: normal bowel sounds, soft. ABSENT: distended, guarding, mass, organolmegaly, rebound, tenderness Extremities exam: PRESENT: full ROM. ABSENT: calf tenderness, clubbing, pedal edema Neurological exam: PRESENT: alert, awake, oriented to person, oriented to place, oriented to time, oriented to situation, CN II-XII grossly intact. ABSENT: motor sensory deficit Skin exam: PRESENT: dry, intact, warm. ABSENT: cyanosis, rash Results Laboratory Results: WBC 8.0 10^3/uL (4.0-10.5) 04/27/20 05:59 RBC 5.60 10^6/uL (4.35-5.55) H 04/27/20 05:59 Hgb 16.7 g/dL (13.5-17.0) 04/27/20 05:59 Hct 48.6 % (37.9-51.0) 04/27/20 05:59 MCV 87 fl (80-97) 04/27/20 05:59 MCH 29.9 pg (27.0-33.4) 04/27/20 05:59 MCHC 34.4 g/dL (32.0-36.0) 04/27/20 05:59 RDW 13.3 % (11.5-14.0) 04/27/20 05:59 Plt Count 319 10^3/uL (150-450) 04/27/20 05:59 Lymph % (Auto) 26.8 % (13-45) 04/26/20 15:48 [place] % (Auto) 8.7 % (3-13) 04/26/20 15:48 Eos % (Auto) 0.9 % (0-6) 04/26/20 15:48 Baso % (Auto) 1.2 % (0-2) 04/26/20 15:48 Absolute Neuts (auto) 5.2 10^3/uL (1.7-8.2) 04/26/20 15:48 Absolute Lymphs (auto) 2.2 10^3/uL (0.5-4.7) 04/26/20 15:48 Absolute Monos (auto) 0.7 10^3/uL (0.1-1.4) 04/26/20 15:48 Absolute Eos (auto) 0.1 10^3/uL (0.0-0.6) 04/26/20 15:48 Absolute Basos (auto) 0.1 10^3/uL (0.0-0.2) 04/26/20 15:48 Seg Neutrophils % 62.4 % (42-78) 04/26/20 15:48 Sodium 140.3 mmol/L (137-145) 04/26/20 15:48 Potassium 4.0 mmol/L (3.6-5.0) 04/26/20 15:48 Chloride 105 mmol/L (98-107) 04/26/20 15:48 Carbon Dioxide 27 mmol/L (22-30) 04/26/20 15:48 Anion Gap 8 (5-19) 04/26/20 15:48 BUN 15 mg/dL (7-20) 04/26/20 15:48 Creatinine 0.91 mg/dL (0.52-1.25) 04/26/20 15:48 Est GFR ( Amer) > 60 (>60) 04/26/20 15:48 Est GFR (MDRD) Non-Af > 60 (>60) 04/26/20 15:48 Glucose 89 mg/dL (75-110) 04/26/20 15:48 Hemoglobin A1c % 5.0 % (4.7-6.0) 04/27/20 05:59 Calcium 9.8 mg/dL (8.4-10.2) 04/26/20 15:48 Total Bilirubin 0.8 mg/dL (0.2-1.3) 04/26/20 15:48 Direct Bilirubin 0.2 mg/dL (0.0-0.4) 04/26/20 15:48 Neonat Total Bilirubin Not Reportable 04/26/20 15:48 Neonat Direct Bilirubin Not Reportable 04/26/20 15:48 Neonat Indirect Bili Not Reportable 04/26/20 15:48 AST 36 U/L (17-59) 04/26/20 15:48 ALT 38 U/L (<50) 04/26/20 15:48 Alkaline Phosphatase 69 U/L (38-126) 04/26/20 15:48 Creatine Kinase 85 U/L (55-170) 04/26/20 15:48 Troponin I < 0.012 ng/mL 04/26/20 15:48 Total Protein 8.2 g/dL (6.3-8.2) 04/26/20 15:48 Albumin 4.7 g/dL (3.5-5.0) 04/26/20 15:48 Triglycerides 109 mg/dL (<150) 04/27/20 05:59 Cholesterol 176.56 mg/dL (0-200) 04/27/20 05:59 LDL Cholesterol Direct 87 mg/dL (<100) 04/27/20 05:59 VLDL Cholesterol 22.0 mg/dL (10-31) 04/27/20 05:59 HDL Cholesterol 68 mg/dL (>40) 04/27/20 05:59 TSH 2.57 uIU/mL (0.47-4.68) 04/26/20 15:48 Free T4 1.15 ng/dL (0.78-2.19) 04/26/20 15:48 04/26/20 15:48 Troponin I < 0.012 Impressions: Chest X-Ray 04/26/20 16:03 IMPRESSION: Hyperexpansion otherwise negative chest. Stroke Is this a Stroke Patient?: No Acute Heart Failure Is this a Heart Failure Patient?: No
== END 2020-04-28 10:08 | disposition home or self-care (01) ==
LOC: ER 15:07 → INTOOBSV 18:04 → EH 18:04 → 3S 18:55
PROVIDERS: ADMIT Internal Medicine; ATTEND Internal Medicine
DX: I48.0 Paroxysmal atrial fibrillation (principal); F17.210 Nicotine dependence, cigarettes, uncomplicated
CPT/HCPCS: 93005 ×2; 99285; 96375; 96365; 36415 ×2; 84439; 82550; 84443; 85025; 85027; 80053; 84484; 83036; 80061; 93306; 71045; 93010 ×2; G0378 ×3; J3490 ×3; J7030